=== PATIENT | male | born 1945 | race Caucasian/White ===

== ENCOUNTER 2019-12-18 13:35 | Emergency (ER) | payer MEDICARE, OTHER ==
[~2019-12-18] VITALS: Ht 172.7 cm; Wt 93.2 kg
--- NOTE | 2019-12-18 14:00 | PHYS DOC ---
Past History Past Medical History: No Pertinent History, Other (CHRISTELLE HDZ APRN) Past Surgical History: Other (CHRISTELLE HDZ APRN) Alcohol Use: None Drug Use: None (CHRISTELLE HDZ APRN) Adult General Chief Complaint Chief Complaint: MULTIPLE COMPLAINTS HPI HPI Patient is a 74 year old male who presents with complaints of low O2 sat and intermittent fevers at home. Patient states that approximately 10 days ago he started becoming short of breath and seeing his Dr. Andrea who put him on a Z-Javon for bronchitis. Patient states he initially got better over the next 4 days, but then approximately 3 days ago his shortness of breath symptoms with nonproductive cough returned. Patient states that he tested positive for the COVID-19 virus 7 days ago. Patient states that he has had intermittent fevers between 99 and 100 degrees that he takes with a ear thermometer at home. Patient states he also had a sore throat approximately 7 days ago but has resolved and has not had a sore throat for the past 4 days. Patient states he returned to see his Dr. Andrea yesterday and was started on an additional Z- Javon which she took 2 tablets yesterday and then 1 today. Patient states that he has a oxygen saturation machine at home which he noticed his O2 sat drops from 91% down to 85% when he walks just a few steps to the bathroom and back. Patient states his saturation returns back to 91% at rest. Patient states that over the past 3 days he has been unable to sleep laying down and must sleep sitting up in a chair for comfort. Patient states that he continues to have a dry cough and has not brought up any sputum. Patient does state that he was a cigarette smoker but quit over 30 years ago patient denies drinking or doing illicit drugs. Patient states that his son is admitted with the Covid 19 virus at [facility], patient states his is admitted at [facility] with a COVID-19 virus and is not doing well. Patient denies any headaches, sore throats, new loss of taste or new loss of smell, nausea or vomiting, congestion or runny nose. Patient does state he has had a bout of diarrhea x1 today and x1 yesterday with a moderate amount of brown watery stool. Patient denies seeing blood in his stool. Patient states that he does have some low abdomen pressure when he has his diarrhea spells however he does not have any abdominal problems when he is not having a diarrhea spell. Patient states that he believes his pressure in the low abdomen comes when he urinates although he is not sure. Patient denies seeing any blood in his urine. Patient denies any visual changes, chest pain, swelling of extremities, back pain or pain in his joints. Patient denies any skin rashes. Patient denies any swelling of his glands, patient denies any recent depressions and/or anxieties. (CHRISTELLE HDZ APRN) Review of Systems Review of Systems Constitutional: Complains of off-and-on fevers at home over the past 9 to 10 days ranging between 99 and 100. Eyes: Denies change in visual acuity, redness, or eye pain HENT: Denies nasal congestion, complains of a sore throat that started 9 days ago however has resolved and has not had a sore throat for the past 4 days. Respiratory: Patient denies cough, however complains of shortness of breath that increases when he walks to the bathroom or does any physical activity over the past 3 days. Patient states his O2 sat drops from 91% down to 85% upon physical exertion. Cardiovascular: Patient denies any chest pains or swelling of his extremities or edema. GI: Denies abdominal pain,, nausea, vomiting, however complains of 1 bout of diarrhea yesterday and 1 bout of diarrhea today brown watery stool moderate amount. : Denies dysuria or hematuria Musculoskeletal: Denies back pain or joint pain Integument: Denies rash or skin lesions Neurologic: Denies headache, focal weakness or sensory changes, denies new loss of smell or new loss of taste. Psychiatric: Patient denies anxieties or depression. All other systems were reviewed and found to be within normal limits, except as documented in this note. (CHRISTELLE HDZ APRN) Current Medications Current Medications Patient states he does not take any [id number] nor prescription medications. (CHRISTELLE HDZ APRN) Allergies Allergies Allergies Coded Allergies Type Severity Reaction Last Updated Verified No Known Drug Allergies 03/04/15 No (CHRISTELLE HDZ APRN) Physical Exam Physical Exam Constitutional: Well developed, well nourished, no acute distress, non-toxic appearance. However during exam interview patient does speak in 3-4 word sentences and becomes increasingly short of breath during longer conversations. HENT: Normocephalic, atraumatic, bilateral external ears normal, oropharynx moist, no oral exudates, nose normal. Patient does not have teeth, uses dentures. Eyes: PERRLA, EOMI, conjunctiva normal, no discharge. Neck: Normal range of motion, no tenderness, supple, no stridor. Cardiovascular:Heart rate regular rhythm, no murmur Lungs & Thorax: Bilateral breath sounds clear to auscultation all lung booth per auscultation. Abdomen: Bowel sounds normal all 4 quadrants presentation, soft, no tenderness, no masses, no pulsatile masses. Skin: Warm, dry, no erythema, no rash. Back: No tenderness, no CVA tenderness. Extremities: No tenderness, no cyanosis, no clubbing, ROM intact, no edema. Neurologic: Alert and oriented X 3, normal motor function, normal sensory function, no focal deficits noted. Psychologic: Affect normal, judgement normal, mood normal. (CHRISTELLE HDZ APRN) Current Patient Data Vital Signs Oral temp was 99 no, blood pressure. NIBP right upper extremity 140/73. Pulse rate 75 sinus rhythm without ectopy, O2 sat 96% on 2 L, respiratory rate 18 and nonlabored while patient is at rest. Lab Results Laboratory Tests Test 12/18/19 14:13 White Blood Count 14.5 x10^3/uL Red Blood Count 5.35 x10^6/uL Hemoglobin 16.6 g/dL Hematocrit 50.1 % Mean Corpuscular Volume 94 fL Mean Corpuscular Hemoglobin 31 pg Mean Corpuscular Hemoglobin Concent 33 g/dL Red Cell Distribution Width 13.8 % Platelet Count 247 x10^3/uL Neutrophils (%) (Auto) 88 % Lymphocytes (%) (Auto) 5 % Monocytes (%) (Auto) 7 % Eosinophils (%) (Auto) 0 % Basophils (%) (Auto) 0 % Neutrophils # (Auto) 12.8 x10^3uL Lymphocytes # (Auto) 0.7 x10^3/uL Monocytes # (Auto) 1.0 x10^3/uL Eosinophils # (Auto) 0.0 x10^3/uL Basophils # (Auto) 0.0 x10^3/uL Urine Collection Type Unknown Urine Color Yellow Urine Clarity Clear Urine pH 5.5 Urine Specific [place] >=1.030 Urine Protein 100 mg/dl Urine Glucose (UA) Neg mg/dL Urine Ketones (Stick) Neg mg/dL Urine Blood Large Urine Nitrite Neg Urine Bilirubin Neg Urine Urobilinogen Dipstick 0.2 mg/dL Urine Leukocyte Esterase Neg Urine RBC 3-5 /HPF Urine WBC Rare /HPF Urine Squamous Epithelial Cells None /LPF Urine Bacteria 0 /HPF Sodium Level 134 mmol/L Potassium Level 4.1 mmol/L Chloride Level 99 mmol/L Carbon Dioxide Level 25 mmol/L Anion Gap 10 Blood Urea Nitrogen 33 mg/dL Creatinine 1.4 mg/dL Estimated GFR (Cockcroft-Gault) 49.5 BUN/Creatinine Ratio 24 Glucose Level 116 mg/dL Lactic Acid Level 1.8 mmol/L Calcium Level 9.4 mg/dL Total Bilirubin 0.7 mg/dL Aspartate Amino Transf (AST/SGOT) 47 U/L Alanine Aminotransferase (ALT/SGPT) 129 U/L Alkaline Phosphatase 80 U/L Troponin I Quantitative < 0.017 ng/mL Total Protein 7.5 g/dL Albumin 2.8 g/dL Albumin/Globulin Ratio 0.6 Current Medications Medications (Trade) Dose Ordered Sig/Xena Route PRN Reason Start Time Stop Time Status Last Admin Dose Admin Acetaminophen (Tylenol) 1,000 mg 1X ONCE PO 12/18/19 15:00 12/18/19 15:01 DC 12/18/19 15:37 Albuterol Sulfate (Ventolin) 2.5 mg 1X ONCE NEB 12/18/19 15:00 12/18/19 15:20 DC Albuterol Sulfate (Ventolin Hfa Inhaler) 2 puff 1X ONCE INH 12/18/19 15:30 12/18/19 15:31 DC 12/18/19 15:31 Sodium Chloride 1,000 ml @ 1,000 mls/hr 1X ONCE IV 12/18/19 15:30 12/18/19 16:29 12/18/19 15:37 (CHRSITELLE HDZ APRN) EKG EKG Twelve-lead EKG performed by ER nursing staff at 1348 shows a normal sinus r hythm without ectopy, heart rate is 75, QTc 0.418, NE interval at 0.142, no STEMI, no coronary syndrome, interpreted by ED attending Dr. Rodrigues. (CHRISTELLE HDZ APRN) Radiology/Procedures Radiology/Procedures REASON: covid PROCEDURE: CHEST AP ONLY CHEST AP ONLY Clinical Indication: Reason: covid / Spl. Instructions: / History: Comparison: Two-view chest September 01, 2007. Findings: The cardiomediastinal silhouette is normal. Minimal airspace opacity in the right lung base. There is linear opacity in the right midlung. the left lung is clear. There is no pneumothorax. No pleural effusion is appreciated. No acute bone abnormality. IMPRESSION: Mild right basilar airspace disease may be atelectasis, infiltrate, or scarring. Electronically signed by: Jeff Garcia MD (12/18/2019 2:34 PM) [id number] DICTATED AND SIGNED BY: JEFF GARCIA MD DATE: 12/18/19 1430 CC: CRISTINA RODRIGUES DO; JAMA ANDREA MD ~ (CHRISTELLE HDZ APRN) Heart Score Risk Factors: Risk Factors: DM, Current or recent (<one month) smoker, HTN, HLP, family history of CAD, obesity. Risk Scores: Risk Factors: DM, Current or recent (<one month) smoker, HTN, HLP, family history of CAD, obesity. (CHRISTELLE HDZ APRN) Course & Med Decision Making Course & Med Decision Making Pertinent Labs and Imaging studies reviewed. (See chart for details) 74-year-old patient presents to the emergency department today complaining of intermittent fevers and oxygen saturation problems at home over the past 3 days. Patient states that he was tested positive for the COVID-19 virus, treated with a Z-Javon 9 days ago and felt better within 4 days, however just 3 days ago his symptoms returned he seen his primary physician Dr. Andrea and was started on an additional Z-Javon yesterday he took his first 2 tablets yesterday, and 1 tablet today, he noticed that when he stands up and walks to the restroom his O2 sat drops from 91% on room air down to 85% on room air. Patient states that when he is at rest his O2 sat rises back to about 91%. Patient states that he became concerned when he was unable to lie down and has required to sit in chair to sleep or be comfortable. Patient does have his son admitted at [facility] for the COVID-19 virus and his is admitted at [facility] in the ICU with the COVID-19 virus. A ER work-up was performed, labs showed a white blood cell count of 14.5, with neutrophils of 88. His cardiac enzymes were negative and the patient did not complain of chest pain. The patient's sodium was slightly low at 134 and his BUN/creatinine were 1.4 and 33, a liter of normal saline was given. The patient did have some vague urinary infection complaints and a urine was obtained but was negative his urine is not infected. A chest x-ray was performed and read by house radiologist as a mild right basilar airspace disease that may be atelectasis infiltrate or scarring. Dr. Andrea was consulted and case reviewed whom stated he noticed the same impression on the chest x-ray he did yesterday. Dr. Andrea wished to have the patient admitted here at [facility], however there are no staff available to take additional patients. The patient wished to be admitted to [facility] Dr. Garcia was consulted and case was reviewed, Dr. Garcia agreed to accept this patient as an observation admission with a diagnosis of Covid positive and hypoxia. Patient will be transferred from this emergency department to [facility] for an observation admission. (CHRISTELLE HDZ APRN) Course & Med Decision Making See Dr. Rodrigues chart for details . Pt. remained stable until transfer to [facility]. (CHIDI PORTILLO MD) Dragon Disclaimer Dragon Disclaimer This electronic medical record was generated, in whole or in part, using a voice recognition dictation system. (CHRISTELLE HDZ APRN) Departure Departure: Impression: Primary Impression: COVID-19 Additional Impressions: Hypoxia Abnormal chest x-ray Disposition: 02 DC/TRF OTHER SHORT TERM HOS Admitting Physician: Other (DR. GARCIA) (CHRISTELLE HDZ APRN) Condition: GUARDED Referrals: JAMA ANDREA MD (PCP) Additional Instructions: You will be transferred to [facility] and admitted under observation under the care of Dr. Garcia. Attending Co-Sign Attending Co-Sign The patient was seen and interviewed as well as examined at the bedside. The chart was reviewed. The case was discussed. Agree with the plan of care. (CHIDI PORTILLO MD) Dragon Disclaimer This chart was dictated in whole or in part using Voice Recognition software in a busy, high-work load, and often noisy Emergency Department environment. It may contain unintended and wholly unrecognized errors or omissions. (CHIDI PORTILLO MD) Dragon Disclaimer This chart was dictated in whole or in part using Voice Recognition software in a busy, high-work load, and often noisy Emergency Department environment. It may contain unintended and wholly unrecognized errors or omissions. (CHIDI PORTILLO MD) Problem Qualifiers CHRISTELLE HDZ APRN Dec 18, 2019 14:00 CHIDI PORTILLO MD Dec 19, 2019 01:06 CRISTINA RODRIGUES DO Dec 19, 2019 15:53
[2019-12-18 14:25] LABS: BASO % 0 % (0-3); EOS % 0 % (0-3); HEMATOCRIT 50.1 % (39.0-53.0); HEMOGLOBIN 16.6 g/dL (13.0-17.5); LYMPH # 0.7 x10^3/uL (1.0-4.8); LYMPH % 5 % (24-48); MEAN CORPUSCULAR HEMOGLOBIN 31 pg (25-35); MEAN CORPUSCULAR HGB CONC 33 g/dL (31-37); MEAN CORPUSCULAR VOLUME 94 fL (79-100); MONO % 7 % (0-9); NEUT # 12.8 x10^3uL (1.8-7.7); NEUT % 88 % (31-73); PLATELET COUNT 247 x10^3/uL (140-400); RED BLOOD COUNT 5.35 x10^6/uL (4.30-5.70); RED CELL DISTRIBUTION WIDTH 13.8 % (11.5-14.5); WHITE BLOOD COUNT 14.5 x10^3/uL (4.0-11.0)
[2019-12-18 14:27] VITALS: BP 140/73
[2019-12-18 14:34] LABS: CALCIUM 9.4 mg/dL (8.5-10.1); CREATININE 1.4 mg/dL (0.7-1.3); GFR 49.5; POTASSIUM 4.1 mmol/L (3.5-5.1)
[2019-12-18 14:37] LABS: BILIRUBIN,URINE NEG (NEG); CLARITY,URINE CLEAR; COLOR,URINE YELLOW; GLUCOSE,URINE NEG (NEG); NITRITE,URINE NEG (NEG); UROBILINOGEN,URINE 0.2 mg/dL (0.2 mg/dL); WBC,URINE RARE /HPF (0-4)
--- NOTE | 2019-12-18 14:37 | RAD ---
CHEST AP ONLY Clinical Indication: Reason: covid / Spl. Instructions: / History: Comparison: Two-view chest September 01, 2007. Findings: The cardiomediastinal silhouette is normal. Minimal airspace opacity in the right lung base. There is linear opacity in the right midlung. the left lung is clear. There is no pneumothorax. No pleural effusion is appreciated. No acute bone abnormality. IMPRESSION: Mild right basilar airspace disease may be atelectasis, infiltrate, or scarring. Electronically signed by: Jeff Garcia MD (12/18/2019 2:34 PM) [id number]
[2019-12-18 14:38] LABS: BACTERIA,URINE 0 /HPF (0-FEW)
[2019-12-18 14:40] LABS: ALBUMIN 2.8 g/dL (3.4-5.0); ALBUMIN/GLOBULIN RATIO 0.6 (1.0-1.7); TOTAL BILIRUBIN 0.7 mg/dL (0.2-1.0); TOTAL PROTEIN 7.5 g/dL (6.4-8.2)
[2019-12-18] MEDS ORDERED: ALBUTEROL SULFATE 2.5 MG/3 ML NEBU. NEB ONE (15:00)
[2019-12-18] MEDS ORDERED: ACETAMINOPHEN 500 MG TABLET PO ONE (15:00)
[2019-12-18] MEDS ORDERED: ALBUTEROL SULFATE 8GM INHALER. INH ONE (15:30)
[2019-12-18] MEDS ORDERED: IV NORMAL SALINE 1,000ML 1,000 ML IV ONE (15:30)
--- NOTE | 2019-12-18 16:46 | EKG ---
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
== END 2019-12-18 22:48 | disposition short-term general hospital (02) ==
LOC: ER 13:35
DX: U07.1 COVID-19 (principal); R09.02 Hypoxemia; R93.1 Abnormal findings on diagnostic imaging of heart and coronary circulation; R19.7 Diarrhea, unspecified; F17.210 Nicotine dependence, cigarettes, uncomplicated
CPT/HCPCS: 36415; 71045; 80053; 81001; 83605; 84484; 85025; 87040; 93005; 94640; 96360; 99285; J7030; J7613; 94664

== ENCOUNTER → 2020-06-13 | Outpatient (CLI) | payer MEDICARE, OTHER ==
[~2020-06-13] MED LIST: ASCO500C9 PO; DOCU50CA9 PO; FURO40TA4 PO; VITAMIN; ZINC50TA39 PO; [UNRECOGNIZED DRUG - OTHER]; probiotic
== END ==
LOC: LAB 13:00
PROVIDERS: ATTEND Nurse Anesthetist, Certified Registered
DX: Z01.812 Encounter for preprocedural laboratory examination (principal); Z86.010 Personal history of colon polyps; Z20.822 Contact with and (suspected) exposure to COVID-19
CPT/HCPCS: U0003

== ENCOUNTER → 2020-06-16 | Day surgery (SDC) | payer MEDICARE, OTHER ==
[~2020-06-16] MED LIST changes: +IPRATRPIUM/ALBUTEROL 0.5/2.5MG 3 ML NEBU. NEB PRN; +IV RINGERS SOLUTION,LACTATED 1,000 ML IV SCH; +LIDOCAINE 2% PF 5 ML VIAL. ONE; +MIDAZOLAM HCL PF 2 MG/2 ML VIAL. IV ONE; +ONDANSETRON PF 4 MG/2 ML VIAL. IV PRN; +PROPOFOL 10,000 MCG/ML (20ML) VIAL IV ONE
[2020-06-16 11:44] VITALS: BP 142/82
== END | disposition home or self-care (01) ==
LOC: SURG 09:23
PROVIDERS: ATTEND Internal Medicine Gastroenterology
DX: R19.5 Other fecal abnormalities (principal); R19.4 Change in bowel habit; K62.5 Hemorrhage of anus and rectum; K64.1 Second degree hemorrhoids; K57.30 Diverticulosis of large intestine without perforation or abscess without bleeding; F17.210 Nicotine dependence, cigarettes, uncomplicated; Z79.899 Other long term (current) drug therapy; Z86.010 Personal history of colon polyps
CPT/HCPCS: 45378; J2001; J2704; J7120

== ENCOUNTER → 2020-07-25 | Outpatient (CLI) | payer MEDICARE, OTHER ==
[2020-06-16 11:44] VITALS: BP 142/82
[~2020-07-25] MED LIST changes: +IOHEXOL 350 MG/ML 100 ML VIAL. IV ONE; -IPRATRPIUM/ALBUTEROL 0.5/2.5MG 3 ML NEBU. NEB PRN; -IV RINGERS SOLUTION,LACTATED 1,000 ML IV SCH; -LIDOCAINE 2% PF 5 ML VIAL. ONE; -MIDAZOLAM HCL PF 2 MG/2 ML VIAL. IV ONE; -ONDANSETRON PF 4 MG/2 ML VIAL. IV PRN; -PROPOFOL 10,000 MCG/ML (20ML) VIAL IV ONE
--- NOTE | 2020-07-25 14:20 | RAD ---
Examination: CT angiography chest with IV contrast HISTORY: History of dyspnea, covid COMPARISON: None TECHNIQUE: Axial CT angiographic images of chest were performed with IV contrast. Coronal and sagitta l 3-D MIP reformats performed Exposure: One or more of the following individualized dose reduction techniques were utilized for thi s examination: 1. Automated exposure control 2. Adjustment of the mA and/or kV according to patient size 3. Use of iterative reconstruction technique. FINDINGS: The central airways are patent. The caliber of the aorta grossly appears unremarkable. There is no ev idence of filling defect identified in main pulmonary arteries is identified. The visualized lobar, segmental branch of the pulmonary arteries. Small right hilar lymph nodes ident ified with the largest measuring 1.5 cm. Faint patchy airspace opacities bilateral lungs. 5 mm nodule left lower lobe of the lung. Mild diffuse decreased attenuation noted in the liver likely hepatic st eatosis. The spleen, adrenals grossly appears unremarkable Moderate degenerative changes thoracic spine. IMPRESSION: 1. No evidence of pulmonary embolism. 2. Faint patchy airspace opacities bilateral lungs likely atelectasis or infiltrates. Follow-up to [facility]. Mild prominent right hilar lymph nodes probably reactive lymphadenopathy. 3. 5 mm nodule left lower lobe of the lung. Follow-up per Fleischner Society guidelines with follow- up CT in 6-12 months. 4. Hepatic steatosis. Electronically signed by: Dennis Gong MD (07/25/2020 2:17 PM) [id number]
== END ==
LOC: CT 07:57
PROVIDERS: ATTEND Family Medicine
DX: R91.1 Solitary pulmonary nodule (principal); K76.0 Fatty (change of) liver, not elsewhere classified; R06.02 Shortness of breath
CPT/HCPCS: 71275; Q9967